=== PATIENT | female | born 1945 | race Caucasian/White ===

== ENCOUNTER 2017-06-11 12:49 | Emergency (ER) | payer MEDICARE ==
[2017-06-11 12:56] VITALS: BP 123/76
[2017-06-11] MEDS ORDERED: Ibuprofen TAB* 600 MG PO ONE (17:55)
--- NOTE | 2017-06-11 17:55 | ED ---
Throat Pain/Nasal Congestion - HPI Summary HPI Summary: Pt here w/ Rt eye redness pain which he woke with days ago. Denies change in vision, photosensitivity, discharge and no trauma to the area. B/L cataracts repaired over 10 years ago. No other eye issues to report. NOTE: pt w/ hypothyroidism - History of Current Complaint Chief Complaint: EDEyeProblem Time Seen by Provider: 06/11/17 16:49 Hx Obtained From: Patient - Allergies/Home Medications Allergies/Adverse Reactions: Allergies Allergy/AdvReac Type Severity Reaction Status Date / Time Iodine Allergy Hives Verified 06/11/17 12:54 Latex Allergy Rash Verified 06/11/17 12:54 Penicillins Allergy UNSURE Verified 06/11/17 12:54 PMH/Surg Hx/FS Hx/Imm Hx Previously Healthy: Yes Endocrine/Hematology History: Reports: Hx Thyroid Disease - hypothyroid Cardiovascular History: Denies: Other Cardiovascular Problems/Disorders Respiratory History: Denies: Other Respiratory Problems/Disorders GI History: Denies: Other GI Disorders History: Reports: Hx Kidney Stones - 1999 Musculoskeletal History: Denies: Hx Osteoporosis Sensory History: Reports: Hx Cataracts - DALI, Hx Contacts or Glasses - GLASSES Denies: Hx Hearing Aid Opthamlomology History: Reports: Hx Cataracts - DALI, Hx Contacts or Glasses - GLASSES Neurological History: Denies: Other Neuro Impairments/Disorders Psychiatric History: Reports: Hx Depression Denies: Hx Eating Disorder, Hx of Violent Episodes Against Others - Cancer History Hx Chemotherapy: No Hx Radiation Therapy: No - Surgical History Surgery Procedure, Year, and Place: ACL, DALI 1999, [facility] [place]. C SECTION X2 Hx Anesthesia Reactions: No Infectious Disease History: No Infectious Disease History: Denies: Traveled Outside the [place] in Last 30 Days - Social History Occupation: Retired Alcohol Use: Rare Alcohol Amount: 3 DRINKS PER WEEK Hx Substance Use: No Substance Use Type: Reports: None Hx Tobacco Use: No Smoking Status (MU): Never Smoked Tobacco Have You Smoked in the Last Year: No Review of Systems Constitutional: Negative Eyes: Other - see HPI ENT: Negative Cardiovascular: Negative Respiratory: Negative Gastrointestinal: Negative Genitourinary: Negative Musculoskeletal: Negative Skin: Negative Neurological: Negative Psychological: Normal All Other Systems Reviewed And Are Negative: Yes Physical Exam Triage Information Reviewed: Yes Vital Signs On Initial Exam: Initial Vitals Temp Pulse Resp BP Pulse Ox 97.6 F 104 16 123/76 96 06/11/17 12:54 06/11/17 12:54 06/11/17 12:54 06/11/17 12:54 06/11/17 12:54 Vital Signs Reviewed: Yes Appearance: Positive: Well-Appearing, Well-Nourished, Pain Distress - uncomfortable w/ Rt eye irritation Skin: Positive: Warm, Dry - no overlying skin changes about Rt eye/face/scalp Head/Face: Positive: Normal Head/Face Inspection Eyes: Positive: Conjunctiva Inflammed, Discharge - watery, Other: - sclera injected on Rt - no lesions, no sloughing, no abrasions, no Siedel's sign, no FB observed with and without fluouresceine; sligtly raised/inflammed (nodular) area long lateral area of sclera; cornea clear; limited fundoscopic exam w/o nydia hemorrhage ENT: Positive: Normal ENT inspection, Hearing grossly normal, Pharynx normal, TMs normal Respiratory/Lung Sounds: Positive: Breath Sounds Present Cardiovascular: Positive: Normal Abdomen Description: Positive: Nontender, Soft Musculoskeletal: Positive: Normal, Strength/ROM Intact Neurological: Positive: Normal, Sensory/Motor Intact, Alert, Oriented to Person Place, Time, CN Intact II-III Psychiatric: Positive: Normal Diagnostics - Vital Signs Vital Signs Temp Pulse Resp BP Pulse Ox 06/11/17 15:03 99.0 F 06/11/17 12:56 97.8 F 104 16 123/76 96 06/11/17 12:54 97.6 F 104 16 123/76 96 - Laboratory Lab Statement: Any lab studies that have been ordered have been reviewed, and results considered in the medical decision making process. EENT Course/Dx - Course Course Of Treatment: Spoke w/ ophthomologist about concern for episcleritis/ scleritis as pt's physical and clinical presentation along w/ h/o hypothyroidism (an autoimmune d/o for some) lead to high clinical suspicion for aforementioned dx. Discussed other possible ocular pathologies w/ ophthomologist however he agrees w/ current dx and agrees to see pt tomorrow for f/u. Reviewed danger s/sx of when to return. Pt agrees w/ plan. - Diagnoses Provider Diagnoses: Episcleritis of left eye Discharge - Discharge Plan Condition: Stable Disposition: HOME Patient Education Materials: Eye Pain (ED) Referrals: Montez Coombs MD [Medical Doctor] - Additional Instructions: It is suspected you have a scleritis or episcleritis. This will be treated with topical eye drops for lubrication which you may purchase over the counter as well as ibuprofen 600mg every 6 hours for pain and swelling (take with food). Follow-up with eye doctor tomorrow. Call at 8am. Contact information included here. *If you have change in vision, eye bulging from socket, swelling around eye, severe headache, fever, chills, neck stiffness, trouble breathing or swallowing , return to ED
== END 2017-06-11 18:11 | disposition home or self-care (01) ==
LOC: ED 12:49
DX: H15.102 Unspecified episcleritis, left eye (principal)
CPT/HCPCS: 99281; A9270-GY

== ENCOUNTER 2019-07-25 12:48 | Inpatient (IN) | payer MEDICARE ==
--- NOTE | 2019-07-25 13:41 | ED ---
Syncope/Near Syncope - HPI Summary HPI Summary: This patient is a 73 year old F presenting to [facility] accompanied by her female friend with a chief complaint of near-syncope since earlier today. Pt states she stood up from sitting on a bench and started to fall. She notes she felt queasy while sitting and queasier after she stood up. Pt called a friend over. Pt's daughter states pt was agitated and diaphoretic before EMS came. Her BP was 168/72. Pt does not remember calling 911. She says she feels better at this time. The patient rates the pain 0/10 in severity. Symptoms aggravated by nothing. Symptoms alleviated by nothing. Pt reports dizziness, lightheadedness, anxiety. Pt denies any fever, chills, erythema of eyes, sore throat, CP, PIMENTEL, SOB , cough, abdominal pain, back pain, N/V, dysuria, hematuria, myalgia, edema, rash, syncope. Pt occasionally drinks, but does not smoke. - History Of Current Complaint Chief Complaint: EDSyncope Time Seen by Provider: 07/25/19 13:09 Hx Obtained From: Patient, Family/Bilingual Operator - daughter, Other: - friend Onset/Duration: Sudden Onset, Lasting Hours - since earlier today, Resolved Timing: Hours - since earlier today Activity At Onset: Other - sitting on a bench Associated Head Trauma: No Aggravating Factor(s): Nothing Alleviating Factor(s): Nothing Associated Signs And Symptoms: Diaphoresis, Dizzy, Lightheadedness, Other - positive - anxiety, "queasiness," near-syncope. negative - any fever, chills, erythema of eyes, sore throat, CP, PIMENTEL, SOB, cough, abdominal pain, back pain, N/ V, dysuria, hematuria, myalgia, edema, rash, syncope. - Allergies/Home Medications Allergies/Adverse Reactions: Allergies Allergy/AdvReac Type Severity Reaction Status Date / Time iodine Allergy Hives Verified 06/20/19 14:35 latex Allergy Rash Verified 06/20/19 14:35 Penicillins Allergy Unknown Verified 06/20/19 14:35 Reaction Details Home Medications: Home Medications FLUoxetine CAP* [PROzac CAP*] 40 mg PO DAILY 07/25/19 [History Confirmed ] Levothyroxine TAB* [Synthroid TAB*] 88 mcg PO DAILY 07/25/19 [History Confirmed 07/25/19] Metoprolol Succinate XL TAB* [Toprol XL TAB*] 25 mg PO DAILY 07/25/19 [History Confirmed 07/25/19] PMH/Surg Hx/FS Hx/Imm Hx Previously Healthy: No Cardiovascular History: Denies: Other Cardiovascular Problems/Disorders Respiratory History: Denies: Other Respiratory Problems/Disorders GI History: Denies: Other GI Disorders History: Reports: Hx Kidney Stones - 1999 Musculoskeletal History: Denies: Hx Osteoporosis Sensory History: Reports: Hx Cataracts - DALI, Hx Contacts or Glasses - GLASSES Denies: Hx Hearing Aid Opthamlomology History: Reports: Hx Cataracts - DALI, Hx Contacts or Glasses - GLASSES Neurological History: Denies: Other Neuro Impairments/Disorders Psychiatric History: Reports: Hx Depression Denies: Hx Eating Disorder, Hx of Violent Episodes Against Others - Cancer History Hx Chemotherapy: No Hx Radiation Therapy: No - Surgical History Surgical History: Yes Surgery Procedure, Year, and Place: ACL, DALI 1999, [facility]. C SECTION X2 Hx Anesthesia Reactions: No Infectious Disease History: No Infectious Disease History: Denies: Traveled Outside the [place] in Last 30 Days - Family History Known Family History: Positive: None - Social History Alcohol Use: Occasionally Alcohol Amount: 3 DRINKS PER WEEK Substance Use Type: Reports: None Hx Tobacco Use: No Smoking Status (MU): Never Smoked Tobacco Do You Chew or Dip Tobacco: No Have You Chewed or Dipped Tobacco in the LAST YEAR: No Have You Smoked in the Last Year: No Review of Systems Constitutional: Other - positive - pt felt queasy, pt was agitated per daughter Positive: Skin Diaphoresis. Negative: Fever, Chills Negative: Erythema Negative: Sore Throat Negative: Chest Pain Negative: Shortness Of Breath, Cough Negative: Abdominal Pain, Vomiting, Nausea Negative: dysuria, hematuria Musculoskeletal: Other - negative - back pain Negative: Myalgia, Edema Negative: Rash Neurological: Other - positive - near-syncope, dizziness, lightheadedness Negative: Headache, Syncope Positive: Anxious All Other Systems Reviewed And Are Negative: Yes Physical Exam - Summary Physical Exam Summary: Constitutional: Well-developed, Well-nourished, Alert. (-) Distressed Skin: Warm, Dry HENT: Normocephalic; Atraumatic Eyes: Conjunctiva normal Neck: Musculoskeletal ROM normal neck. (-) JVD, (-) Stridor, (-) Tracheal deviation Cardio: Rhythm regular, rate normal, Heart sounds normal; Intact distal pulses; The pedal pulses are 2+ and symmetric. Radial pulses are 2+ and symmetric. (-) Murmur Pulmonary/Chest wall: Effort normal. (-) Respiratory distress, (-) Wheezes, (-) Rales Abd: Soft, (-) tenderness, (-) Distension, (-) Guarding, (-) Rebound Musculoskeletal: (-) Edema Lymph: (-) Cervical adenopathy Neuro: Alert, Oriented x3 Psych: Mood and affect Normal Triage Information Reviewed: Yes Vital Signs On Initial Exam: Initial Vitals Temp Pulse Resp BP Pulse Ox 98.0 F 78 15 159/105 97 07/25/19 12:52 07/25/19 12:52 07/25/19 12:52 07/25/19 12:52 07/25/19 12:52 Vital Signs Reviewed: Yes Diagnostics - Vital Signs Vital Signs Temp Pulse Resp BP Pulse Ox 07/25/19 12:52 98.0 F 78 15 159/105 97 - Laboratory Result Diagrams: 07/25/19 13:28 07/25/19 13:28 Lab Statement: Any lab studies that have been ordered have been reviewed, and results considered in the medical decision making process. - CT Brain CT Interpretation Completed By: Radiologist Summary of CT Findings: IMPRESSION: 1. No acute intracranial abnormality by CT (MRI is more sensitive for acute infarct). 2. Mild chronic small vessel scanner disease is likely. These findings were reviewed by Dr. Wilson. - EKG 1329 Cardiac Rate: NL - 80 EKG Rhythm: Sinus Rhythm Summary of EKG Findings: EKG at 1329 shows 80 BPM, sinus rhythm, no STEMI Re-Evaluation - Re-Evaluation First Eval Re-Evaluation Time: 15:55 Comment: Pt is upset, hyperventilating, has 108 systolic pressure, and did not take her medication today. Course/Dx Course Of Treatment: This patient is a 73 year old F presenting to [facility] accompanied by her female friend with a chief complaint of near-syncope since earlier today. Pt states she stood up from sitting on a bench and started to fall. She notes she felt queasy while sitting and queasier after she stood up. Pt called a friend over. Pt's daughter states pt was agitated and diaphoretic before EMS came. Her BP was 168/72. Pt does not remember calling 911. She says she feels better at this time. The patient rates the pain 0/10 in severity. Symptoms aggravated by nothing. Symptoms alleviated by nothing. Pt reports dizziness, lightheadedness, anxiety. Pt denies any fever, chills, erythema of eyes, sore throat, CP, PIMENTEL, SOB, cough, abdominal pain, back pain, N/ V, dysuria, hematuria, myalgia, edema, rash, syncope. Pt occasionally drinks, but does not smoke. Physical exam shows no remarkable findings. Lab results show MCH 35, absolute neuts 8.1, glucose 108, urine protein 1+ A, urine ketones trace A, urine blood 2+ A, Ur leukocyte esterase 2+ A, urine WBC 3+ A, urine RBC 3+ A, Ur squamous epith cells present A. EKG at 1329 shows 80 BPM, sinus rhythm, no STEMI. Brain CT IMPRESSION: 1. No acute intracranial abnormality by CT (MRI is more sensitive for acute infarct). 2. Mild chronic small vessel scanner disease is likely. During ED course, pt was given fluids, Lopressor IV , Rocephin. Dx are orthostasis hypertensive crisis, medication noncompliance, diaphoresis. At 1602, Dr. Gold accepts pt for admission. - Diagnoses Provider Diagnoses: Orthostasis, Hypertensive crisis, Noncompliance with medication regimen, Diaphoresis - Physician Notifications Discussed Care of Patient With: Dianna Gold Time Discussed With Above Provider: 16:02 Instructed by Provider To: Other - Dr. Gold accepts pt for admission. Discharge ED - Sign-Out/Discharge Documenting (check all that apply): Patient Departure - admit Patient Received Moderate/Deep Sedation with Procedure: No - Discharge Plan Condition: Stable Disposition: ADMITTED TO [facility] Referrals: Wesley Llanos MD [Primary Care Provider] - - Attestation Statements Document Initiated by Scribe: Yes Documenting Scribe: Barry Blanchard Provider For Whom Scribe is Documenting (Include Credential): Dr. Paul Wilson MD Scribe Attestation: Barry Grant, scribed for Dr. Paul Wilson MD on 07/25/19 at 1607. Status of Scribe Document: Ready
[2019-07-25 14:00] LABS: ABS Eosinophils 0.1 10^3/ul (0-0.6); ABS Lymphocytes 1.5 10^3/ul (1.0-4.8); ABS Monocytes 0.5 10^3/ul (0-0.8); ABS Neutrophils 8.1 10^3/ul (1.5-7.7); Eosinophil % 0.8 %; Hematocrit 39 % (35-47); Lymphocyte % 14.4 %; Mean Corpuscular HGB Conc 36 g/dL (31-36); Mean Corpuscular Hemoglobin 35 pg (27-31); Mean Corpuscular Volume 97 fL (80-97); Mean Platelet Volume 7.4 fL (7.4-10.4); Nucleated Red Blood Cells % 0.1; Platelet Count 368 10^3/uL (150-450); Red Blood Count 4.04 10^6 /uL (3.70-4.87); Red Cell Distribution Width 13 % (10-15); White Blood Count 10.3 10^3/uL (3.5-10.8)
[2019-07-25] MEDS ORDERED: NS 0.9% 1000 ML** 1,000 ML IV ONE (14:29)
[2019-07-25 14:32] LABS: Albumin 4.1 g/dL (3.2-5.2); Albumin/Globulin Ratio 1.5 (1-3); BUN/Creatinine Ratio 17.9 (8-20); Calcium 9.9 mg/dL (8.6-10.3); EGFR Non-African American 57.8 (>60); Globulin 2.7 g/dL (2-4); Magnesium 1.9 mg/dL (1.9-2.7); Potassium 3.6 mmol/L (3.5-5.0); Total Bilirubin 0.7 mg/dL (0.2-1.0); Total Protein 6.8 g/dL (6.4-8.9)
[2019-07-25 14:43] LABS: Urine Appearance Cloudy; Urine Bacteria Absent (Absent); Urine Bilirubin Negative (Negative); Urine Blood 2+ (Negative); Urine Color Yellow; Urine Glucose Negative (Negative); Urine Ketones Trace (Negative); Urine Nitrite Negative (Negative); Urine Protein 1+(30 mg/dL) (Negative); Urine Red Blood Cell 3+(>10/hpf) (Absent); Urine Specific Gravity 1.016 (1.010-1.030); Urine Squamous Epithelial Cell Present (Absent); Urine Urobilinogen Negative (Negative); Urine White Blood Cell 3+(>20/hpf) (Absent)
[2019-07-25 15:04] LABS: TSH (Thyroid Stimulating Horm) 2.49 mcIU/mL (0.34-5.60)
[2019-07-25] MEDS ORDERED: cefTRIAXone(*) 1 GM in NS 0.9% 50 ML* 50 ML IVPB ONE (15:52)
[2019-07-25] MEDS ORDERED: Metoprolol Tartrate IV* 1 MG/ML 5 ML VIAL IV ONE (15:54)
[2019-07-25] MEDS ORDERED: Lisinopril TAB* 5 MG PO SCH (18:00)
--- NOTE | 2019-07-25 19:27 | HP ---
CC: Dr. Wesley Llanos, [facility] * ADMISSION HISTORY AND PHYSICAL: DATE OF ADMISSION: 07/25/19 CHIEF COMPLAINT: Near syncope. HISTORY OF PRESENT ILLNESS: Ms. Lawson is a 73-year-old woman with history of hypertension who got up late this morning around noon and felt immediately dizzy when she tried to stand up from her bed. She sat down and called a friend who lived nearby and stating that she did not feel right. The patient's friend came over to her house and found her agitated and upset. The patient at this time does not recall making a telephone call to her friend. The patient felt this was a panic attack, but her friend thought that she was dizzy and diaphoretic and was concerned about heart issues. This led her to call 911. Her friend's name is Jaylene. On further questioning, the patient has no clear memory of what happened between 6 in the morning and noon today. She states she normally gets up early and does not understand how she could have been in bed until noon. However, there is no evidence in the downstairs of the house that she was up and around and she is quite sure she was in her bedroom at least until noon. It is possible that she simply slept for 6 hours. The patient denies any headache, chest pain, shortness of breath. Last hospitalization here was in 2014 where she was admitted to the mental health unit for depression. The patient's friend, Jaylene, reports a history of alcohol abuse. Jaylene states that she was involved in an "intervention" with her about 4 or 5 years ago and she is not sure how much the patient drinks at this time, but she was drinking daily and heavily before that. PAST MEDICAL HISTORY: Includes depression, hypothyroidism, and hypertension. PAST SURGICAL HISTORY: Bilateral knee replacement. MEDICATIONS ON ADMISSION: 1. Fluoxetine 40 mg p.o. q.a.m. 2. Levothyroxine 88 mcg p.o. q.a.m. 3. Toprol-XL 25 mg p.o. q. day. None of the medications are new. ALLERGIES: PENICILLIN. FAMILY HISTORY: Notable for a mother with depression and mental hospital admissions for unclear reasons. Father also had mental health problems, was never admitted to the hospital. Brother has had depressive episodes. SOCIAL HISTORY: She is . She has 2 children. Her daughter, Linda, lives in [place]. She has a son in the [facility]. She never smoked. She states she drinks wine, maybe 2 drinks per week. No recreational drugs. 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 REVIEW OF SYSTEMS: The patient denies any fever, weight loss, or anorexia. The patient denies any chest pain or palpitations. The patient denies any cough or shortness of breath. The friend and daughter have discussed with the patient in the last few months and they both are reporting memory problems that have been present for some months, apparently not diagnosed at primary care. The patient denies any memory problems herself, but admits to anxiety. The remainder of 14- point review of systems is negative other than mentioned in the HPI. PHYSICAL EXAMINATION GENERAL: She is a well-appearing older woman, in no acute distress. VITAL SIGNS: Temperature 36.7; pulse 88; respirations 26; blood pressure lying was 192/110, sitting was 156/112, and standing was 131/86; oxygen saturation 98% . HEENT: Head is normocephalic, atraumatic. Sclerae anicteric. Pupils are equal , round, and reactive to light and accommodation. Oropharynx is moist, no lesions. NECK: No JVD, no carotid bruits, no thyromegaly. LUNGS: Clear to auscultation and percussion bilaterally. HEART: Regular rate and rhythm. No murmurs or gallops. ABDOMEN: Soft, nontender. Positive bowel sounds. No hepatosplenomegaly. EXTREMITIES: No peripheral edema. Dorsalis pedis pulse are 2+ bilaterally. NEUROLOGIC: Cranial nerves II through XII are intact. Motor strength is 5/5 throughout. Deep tendon reflexes are 2+ and symmetric. She is alert. She is oriented to place. She thought the date was 07/24/19 which was off by 1 day, but she was very slow to come up with the year. She does not remember the names of her medications except for one. She also contradicted herself when talking about allergies; initially, she said that she has 3 allergies, but later she said she had only one allergy and took a long time to come up with PENICILLIN as her allergy. DIAGNOSTIC STUDIES/LAB DATA: Sodium 138, potassium 3.6, chloride 106, bicarb 23, BUN 17, creatinine 0.95, glucose 108, calcium 9.9, magnesium 1.9, lactic acid 1.3. TSH 2.49. White count 10.3, hemoglobin 14, hematocrit 39%, platelets are 386. Urinalysis shows 2+ blood, 2+ leukocyte esterase, 3+ white cells. Urine culture is pending. The EKG shows normal sinus rhythm, normal axis, no ST or T-wave changes to suggest ischemia. Head CT shows some chronic microvascular changes and aging, but no acute infarct or bleed. Chest x-ray is negative for infiltrates or effusions. ASSESSMENT AND PLAN: A 73-year-old woman presenting with near syncope and orthostasis along with a recent history of progressive memory loss. The differential wound include dehydration or hypovolemia from a GI hemorrhage, which at this point is not apparent on exam. She could have autonomic disease such as Parkinson's or Shy-Drager and she could have adrenal issues with low cortisol causing orthostasis. Other causes of orthostasis would include medication side effects, but nothing new has been added. The patient will be admitted to telemetry, and we will hold her beta-samia given that this could contribute to orthostasis. She will be monitored for arrhythmia as well on telemetry. I will check an a.m. cortisol to begin assessing her adrenal glands. For hypertension, I will start her on lisinopril. I think choosing MARC inhibitor which would not have so much chance of causing orthostasis seems reasonable. I would like to avoid beta-blockers and diuretics. The patient will have a psychiatry evaluation tomorrow. I suspect that part of this presentation was a panic attack, but there may also be an element of early Alzheimer's. Differential with her memory loss this morning would include seizure with postictal confusion, but the patient's friend feels that perhaps she is at her baseline now and has been progressively confused over several months. The patient has history of alcohol abuse and will be observed for signs and symptoms of alcohol withdrawal, but at this time we are not initiating the [facility] protocol. For possible hypovolemia, she will be continued on her normal saline with a bit of potassium. Her labs and physical exam are not consistent with hypovolemia. Code status is full. DVT prophylaxis will be with sequential compression devices. [id number]/[facility] #: [id number] [facility]
[2019-07-25] MEDS: NS 0.9% w/ 20 Meq KCL 1000 ML* 1,000 ML IV SCH (21:19)
[2019-07-25] MEDS: Acetaminophen TAB* 325 MG PO PRN (22:26)
[2019-07-26] MEDS: Levothyroxine TAB* 88 MCG TAB PO SCH (05:25)
[2019-07-26 06:17] LABS: ABS Eosinophils 0.1 10^3/ul (0-0.6); ABS Monocytes 0.5 10^3/ul (0-0.8); ABS Neutrophils 5.8 10^3/ul (1.5-7.7); Eosinophil % 1.6 %; Hematocrit 38 % (35-47); Hemoglobin 13.3 g/dL (12.0-16.0); Lymphocyte % 23.9 %; Mean Corpuscular HGB Conc 35 g/dL (31-36); Mean Corpuscular Hemoglobin 34 pg (27-31); Mean Corpuscular Volume 98 fL (80-97); Mean Platelet Volume 7.3 fL (7.4-10.4); Platelet Count 324 10^3/uL (150-450); Red Blood Count 3.89 10^6 /uL (3.70-4.87); Red Cell Distribution Width 13 % (10-15); White Blood Count 8.6 10^3/uL (3.5-10.8)
[2019-07-26 06:27] LABS: BUN/Creatinine Ratio 14.7 (8-20); Calcium 9.3 mg/dL (8.6-10.3); EGFR African American 102.9 (>60); EGFR Non-African American 85.1 (>60); Potassium 3.9 mmol/L (3.5-5.0)
[2019-07-26] MEDS ORDERED: LORazepam TAB(*) 1 MG PO ONE (07:31)
[2019-07-26] MEDS: Lisinopril TAB* 10 MG PO SCH (08:51)
[2019-07-26] MEDS ORDERED: FLUoxetine CAP* 20 MG PO SCH (09:00)
[2019-07-26] MEDS: NS 0.9% w/ 20 Meq KCL 1000 ML* 1,000 ML IV SCH ×2 (10:05→20:38)
--- NOTE | 2019-07-26 10:23 | CONSULT ---
Consult Consult: Reason for consult depression and memory issues. CC " I had a panic attack" The patient was brought to [facility] after a recent fall and panic attack. She mentions that she does not remember anything from 6am to 11am. Her friend was at her bedside and mentions that she has been confused forgetful and has been acting different for the last year. She said that her friend came to her house and found her. According to the patient she has been anxious about her daughter coming home. Her friend expressed that her children live on the [facility] and plan to move her near them because she has been unable to care for herself. Patient doesnt know what year she was and what medications she is on. Denied access to firearms or stockpiles of medications. She reported not changes in sleep or appetite. The patient denied suicidal and or homicidal ideation intent or plan. The patient denied auditory and/ or visual hallucinations. PAST PSYCHIATRIC HISTORY: Prior Diagnosis : Panic Disorder, History of past Psychiatric Hospitalizations: 1 prior psychiatric admission 09/2015. History of past suicide/homicide attempts : Denied past suicide attempts. Denied past homicidal incidents. Outpatient follow-up: Family and Children's Medications: Past trials of medications include prozac 40mg daily for the last 5 years Guardianship: None. FAMILY HISTORY: - Suicide: Per patient her mother made multiple suicide attempts. - Mental illness: Mother Dx with depression. - Substance abuse: Denied substance abuse among family members. SUBSTANCE ABUSE HISTORY: Denied using alcohol, tobacco, heroin cocaine or other illicit substances. Denied abusing pills for recreational use. Denied past Substance abuse treatment. SOCIAL HISTORY: Denied a history of sexual and or physical abuse Born in [place] raised by both parents. 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 - Allergies: Denied drug or other allergies. Physical Exam: Please see ED note Mental Status Exam on Admission APPEARANCE : 73 year old who appears stated age. Patient is not malodourous, and appears to have fair hygiene and grooming. BEHAVIOR: Cooperative , calm EYE CONTACT: Fair PSYCHOMOTOR ACTIVITY: No psychomotor agitation or retardation. MOVEMENTS: No abnormal movements observed. SPEECH : Normal rate, rhythm, volume and tone. MOOD : "fine " AFFECT : Type is anxious THOUGHT PROCESS: Formulated and organized in a logical, linear goal directed manner. No flight of ideas, neologism (made up words) , perseveration , tangential , loose associations , or circumstantiality. THOUGHT CONTENT: no delusions, obsessions, phobias or preoccupations. PERCEPTION: No current auditory or visual hallucinations. Doesnt appear to be responding to internal cues. No evidence of depersonalization , de-realization, or illusions SUICIDALITY Denied suicidal ideation, intent or plan. HOMICIDALITY Denied homicidal ideation, intent or plan. Insight/judgment: Poor insight and judgment ORIENTATION: Oriented to self, location, and not year. Diagnosis: Unspecified neuro-cognitive disorder, panic disorder, history of major depressive disorder. Assessment: 73 year old with history of depression and anxiety came to the hospital after having a panic attack and showing signs of cognitive decline. Plan # Patient doesnt require psychiatric inpatient admission # Increase prozac 50mg daily. # Medical team to rule out medical etiology # It would be beneficial to have neurology input to narrow the neurological etiology # Follow results for MRI brain w/wo # Can use Klonopin 1mg PRN in the event of having a panic attack. Use sparingly given cognitive disorder and risk of falls and delirium. # Obtain collateral information from her children # Will perform MOCA #Psychiatry will continue to follow her #Patient lacks capacity to make own medical decision. Her children are in the process of being her health care proxy. Sodium 137 mmol/L (135-145) 07/26/19 05:34 Potassium 3.9 mmol/L (3.5-5.0) 07/26/19 05:34 BUN 10 mg/dL (6-24) 07/26/19 05:34 Creatinine 0.68 mg/dL (0.51-0.95) 07/26/19 05:34 Calcium 9.3 mg/dL (8.6-10.3) 07/26/19 05:34 Magnesium 1.9 mg/dL (1.9-2.7) 07/25/19 13:28 AST 16 U/L (13-39) 07/25/19 13:28 ALT 18 U/L (7-52) 07/25/19 13:28
[2019-07-26 10:28] LABS: Folate 5.25 ng/mL (>3.99)
--- NOTE | 2019-07-26 11:44 | ECHO ---
*[facility]* [place] [address] Fax #: [phone] Transthoracic Echocardiogram Patient: Grady Lawson : 1945 Study Date: 07/26/2019 Age: 73 Gender: F HR: 48 bpm Height: 60 in /152.4 cm BSA: 1.62 m^2 Weight: 143.7 lb /65.3 kg BMI: 28.1 kg/m^2 *County Auditor: * Sravanthi Alberts RD *Referring Physician: * Arian Dave *Reading Physician: * Madhav Stack MD Indications: Cardiomyopathy. History: Risk factors: Hypertension. Hypothyroidism. Conclusions Summary: - Left ventricle: There is mild concentric hypertrophy. Systolic function is normal. The estimated ejection fraction is 55-60%. Doppler parameters are consistent with abnormal left ventricular relaxation (grade 1 diastolic dysfunction). - Mitral valve: There is mild regurgitation. - Tricuspid valve: There is trace to mild regurgitation. Study data: Transthoracic echocardiogram. Procedure: Transthoracic echocardiography was performed. Image quality was fair. Complete 2D, spectral Doppler, and color flow Doppler. Location: Bedside. Patient status: Inpatient. Patient room number: 432. No prior study is available for comparison. Rhythm: Normal sinus rhythm. Findings Left ventricle: The cavity size is normal. There is mild concentric hypertrophy. Systolic function is normal. The estimated ejection fraction is 55-60%. Wall motion is normal; there are no regional wall motion abnormalities. Doppler parameters are consistent with abnormal left ventricular relaxation (grade 1 diastolic dysfunction). Right ventricle: The cavity size is at the upper limits of normal. The moderator band is in a normal position. Systolic function is normal. Left atrium: The atrium is at the upper limits of normal in size. Right atrium: The atrium is normal in size. Mitral valve: The leaflets are mildly thickened. There is no evidence of stenosis. There is mild regurgitation. Aortic valve: The valve is trileaflet. The leaflets are mildly thickened. There is no evidence of stenosis. There is no significant regurgitation. Tricuspid valve: The leaflets are normal thickness. There is no evidence of stenosis. There is trace to mild regurgitation. Pulmonic valve: Not well visualized. There is no evidence of stenosis. There is trace regurgitation. Aorta: Ascending aorta: The ascending aorta is appears normal. The aortic root appears normal. The aortic arch appears normal. Pericardium: There is no significant pericardial effusion. Pulmonary arteries: The main pulmonary artery is normal-sized. Systolic pressure is within the normal range. Systemic veins: Inferior vena cava: The vessel is normal in size. There is (>= 50%) respiratory change in the IVC dimension. Measurements Left ventricle Value Ref Aortic valve Value Ref MOON, LAX 4.5 cm 3.8 - 5.2 Jean Pierre diam, ED 1.9 cm ----- ESD, LAX 3.3 cm 2.2 - 3.5 Peak v, S 1.19 m/sec ----- FS, LAX 28 % 45 VTI, S 18.0 cm ----- PW, ED, LAX (H) 1.1 cm 0.6 - 0.9 Mean grad, S 2.0 mm Hg ----- FS 28 % Peak grad, S 6.0 mm Hg ----- PW, ED (H) 1.1 cm 0.6 - 0.9 LVOT/AV, VTI ratio 1.17 ----- E', lat jean pierre, TDI (L) 4.1 cm/sec >=10.0 E/e', lat jean pierre, 12 Mitral valve Value Ref TDI Peak E 0.5 m/sec ----- E', med jean pierre, TDI (L) 4.5 cm/sec >=7.0 Peak A 0.89 m/sec --- -- E/e', med jean pierre, 11 Decel time 218 ms ----- TDI Peak E/A ratio 0.6 ----- E', avg, TDI 4.3 cm/sec E/e', avg, TDI 12 <=14 Pulmonic valve Value Ref Peak v, S 0.92 m/sec ----- LVOT Value Ref Peak grad, S 3.0 mm Hg ----- Peak jaleel, S 1 m/sec VTI, S 21.0 cm Tricuspid valve Value Ref Mean grad, S 2 mm Hg TR peak v 2.3 m/sec <=2.8 Peak RV-RA grad, S 21 mm Hg ----- Ventricular septum Value Ref IVS, ED (H) 1.1 cm 0.6 - 0.9 Aortic root Value Ref Root diam 3.3 cm <3.9 Right ventricle Value Ref MOON, LAX 3.3 cm Ascending aorta Value Ref MOON minor ax, A4C (H) 4.3 cm 1.9 - 3.5 AAo AP diam, S 3.1 cm ----- mid Pressure, S 24 mm Hg Aortic arch Value Ref Arch diam 2.2 cm ----- Left atrium Value Ref AP dim, ES (H) 3.90 cm 2.70 - Decending aorta Value Ref 3.80 Nela peak jaleel 0.65 m/sec ----- ML dim, A4C 4.0 cm SI dim, A4C 5.0 cm Pulmonary artery Value Ref Vol/bsa, ES, 1-p 25 ml/m^2 11 - 40 Pressure, S 21.0 mm Hg ----- A4C Vol/bsa, ES, A/L 28 ml/m^2 16 - 34 Inferior vena cava Value Ref Diam 1.3 cm ----- Right atrium Value Ref SI dim, ES 4.6 cm 3.4 - 5.3 ML dim, ES, A4C 3.5 cm 2.6 - 4.4 SI dim, ES, A4C 4.6 cm 3.4 - 5.3 Estimated RAP 3 mm Hg Legend: (L) and (H) george values outside specified reference range. Prepared and electronically signed by Madhav Stack MD 07/26/2019 11:43
[2019-07-26] MEDS ORDERED: Gadoteridol* (CONTRAST) 279.3 MG/ML 10 ML IV ONE (14:10)
[2019-07-26] MEDS ORDERED: clonazePAM TAB(*) 1 MG PO PRN (16:56)
--- NOTE | 2019-07-26 17:07 | PN ---
Subjective Date of Service: 07/26/19 Interval History: Patient was holding a basin this morning when I saw her. She was helpless looking, hyperventilating, crying to me "I don't want to be left alone".She told me she was left alone at home panicking to . And she begged for not discharging her. She felt very depressed as she was alone at home. She cannot recall certain words when she was talking to me. Her symptoms quickly resolved after one dose of ativan. Objective Active Medications: Acetaminophen (Tylenol Tab*) 650 mg PO Q4H PRN PRN Reason: PAIN - MILD Last Admin: 07/25/19 22:26 Dose: 650 mg Clonazepam (Klonopin Tab(*)) 1 mg PO Q8H PRN PRN Reason: Panic attack Cyanocobalamin (Vitamin B12 Tab*) 1,000 mcg PO DAILY [facility] Fluoxetine HCl (Prozac Cap*) 50 mg PO DAILY [facility] Potassium Chloride/Sodium Chloride (Ns 0.9% W/ 20 Meq Kcl 1000 Ml*) 1,000 mls @ 125 mls/hr IV PER RATE [facility] Last Admin: 07/26/19 10:05 Dose: 125 mls/hr Levothyroxine Sodium (Synthroid Tab*) 88 mcg PO DAILY@0600 [facility] Last Admin: 07/26/19 05:25 Dose: 88 mcg Lisinopril (Prinivil Tab*) 10 mg PO DAILY [facility] Last Admin: 07/26/19 08:51 Dose: 10 mg Vital Signs - 8 hr 07/26/19 07/26/19 07/26/19 10:00 11:15 13:15 Temperature 98 F Pulse Rate 80 Respiratory 16 20 Rate Blood Pressure 121/77 (mmHg) O2 Sat by Pulse 97 Oximetry 07/26/19 07/26/19 07/26/19 13:16 13:17 15:15 Temperature 98 F Pulse Rate 91 95 70 Respiratory 16 Rate Blood Pressure 132/87 126/86 142/58 (mmHg) O2 Sat by Pulse 99 Oximetry Oxygen Devices in Use Now: None Exam: General - NAD, sitting up in bed, well groomed and in nightgown HEENT- no abnormality Lymph Nodes - No lymphadenopathy Cardiovascular - RRR no m/r/g, no JVD, no carotid bruits Lungs - Clear to auscltation, no use of acessory muscles, no crackles or wheezes. Skin - No rashes, skin warm and dry, no erythematous areas Abdomen - Normal bowel sounds, abdomen soft and nontender Extremeties - No edema, cyanosis or clubbing Musculo Skeletal - 5/5 strength, normal range of motion, no swollen or erythematousjoints. Neurological Alert and oriented x 3, CN 2-12 grossly intact. Psychiatry-in panic attack, anxious looking, depressed also Result Diagrams: 07/26/19 05:34 07/26/19 05:34 Assess/Plan/Problems-Billing Assessment: 73 y/o female with history of hypertension , presented with near-syncope and orthostasis after a recent history of progressive memory loss. Workup for organic causes of near-syncope and orthostasis is unremarkable so far, but patient had this recurrent episode which was clearly panic attack. - Patient Problems (1) Panic attack Current Visit: Yes Status: Acute Code(s): F41.0 - PANIC DISORDER [EPISODIC PAROXYSMAL ANXIETY] SNOMED Code(s): 862772847 Comment: Psychiatry consult today Lorazepam prn (2) Orthostasis Current Visit: Yes Status: Acute Code(s): I95.1 - ORTHOSTATIC HYPOTENSION SNOMED Code(s): 47019178 Comment: Orthostatic changes noted in ED likely hypovolemic in nature IV NS given (3) Hypertension Current Visit: Yes Status: Acute Code(s): I10 - ESSENTIAL (PRIMARY) HYPERTENSION SNOMED Code(s): 73665050 Comment: start lisinopril (4) Anxiety Current Visit: No Status: Acute Priority: High Onset Date: 09/20/15 Code (s): F41.9 - ANXIETY DISORDER, UNSPECIFIED SNOMED Code(s): 47380566 Comment: continue fluoxetine for now (5) Major depression Current Visit: No Status: Suspected Priority: High Onset Date: 09/20/15 Code(s): F32.9 - MAJOR DEPRESSIVE DISORDER, SINGLE EPISODE, UNSPECIFIED SNOMED Code(s): 314230402 Comment: consider increase SSRI dose Status and Disposition: Inpatient medicine, patient is unsafe to go home and stay alone with frequent panic attack episode, placement after discharge is difficult Attestation Documenting Resident: Janine Callahan Supervising Physician: Arian Dave Attestation: This service has been performed in part by a resident under the direction of a teaching physician.I, Arian Dave, performed the service, or was physically present during the critical, or gordon portions of the service, furnished by the resident. I participated in the management of the patient.
[2019-07-27] MEDS: Levothyroxine TAB* 88 MCG TAB PO SCH (05:06)
[2019-07-27] MEDS: NS 0.9% w/ 20 Meq KCL 1000 ML* 1,000 ML IV SCH (05:16)
[2019-07-27] MEDS: FLUoxetine CAP* 10 MG PO SCH (08:05)
[2019-07-27] MEDS: Cyanocobalamin TAB* 500 MCG PO SCH (08:05)
[2019-07-27] MEDS: Lisinopril TAB* 10 MG PO SCH (08:05)
[2019-07-27] MEDS ORDERED: Cyanocobalamin INJ * 1,000 MCG/ML VIAL 1 ML VIAL IM SCH (09:00)
--- NOTE | 2019-07-27 13:16 | PN ---
Subjective Date of Service: 07/27/19 Interval History: Patient reports vomiting this AM. Now she is eating lunch w/o nausea. She reports depression came on her suddenly around noon, and she no longer wants to live. Friend Jaylene is visiting. Daughter Alba is traveling back to [place] today from [place], her correct number is [phone] Son Vincenzo is at [phone]. Family History: Unchanged from Admission Social History: Unchanged from Admission Past Medical History: Unchanged from Admission Objective Active Medications: Acetaminophen (Tylenol Tab*) 650 mg PO Q4H PRN PRN Reason: PAIN - MILD Last Admin: 07/25/19 22:26 Dose: 650 mg Clonazepam (Klonopin Tab(*)) 1 mg PO Q8H PRN PRN Reason: Panic attack Cyanocobalamin (Vitamin B12 Tab*) 1,000 mcg PO DAILY [facility] Last Admin: 07/27/19 08:05 Dose: 1,000 mcg Cyanocobalamin (Vitamin B12 Inj *) 1,000 mcg IM Q7D [facility] Last Admin: 07/27/19 08:58 Dose: 1,000 mcg Fluoxetine HCl (Prozac Cap*) 50 mg PO DAILY [facility] Last Admin: 07/27/19 08:05 Dose: 50 mg Potassium Chloride/Sodium Chloride (Ns 0.9% W/ 20 Meq Kcl 1000 Ml*) 1,000 mls @ 125 mls/hr IV PER RATE [facility] Last Admin: 07/27/19 05:16 Dose: 125 mls/hr Levothyroxine Sodium (Synthroid Tab*) 88 mcg PO DAILY@0600 [facility] Last Admin: 07/27/19 05:06 Dose: 88 mcg Lisinopril (Prinivil Tab*) 10 mg PO DAILY [facility] Last Admin: 07/27/19 08:05 Dose: 10 mg Vital Signs - 8 hr 07/27/19 07/27/19 07:15 11:15 Temperature 36.6 C 36.6 C Pulse Rate 67 80 Respiratory 19 16 Rate Blood Pressure 146/87 168/98 (mmHg) O2 Sat by Pulse 100 98 Oximetry Oxygen Devices in Use Now: None Appearance: alert, no distress Eyes: No Scleral Icterus Ears/Nose/Mouth/Throat: Clear Oropharnyx Neck: NL Appearance and Movements; NL JVP Respiratory: Symmetrical Chest Expansion and Respiratory Effort Cardiovascular: NL Sounds; No Murmurs; No JVD, RRR Abdominal: NL Sounds; No Tenderness; No Distention Lymphatic: No Cervical Adenopathy Neurological: Alert and Oriented x 3 Lines/Tubes/Other Access: Clean, Dry and Intact Peripheral IV Nutrition: Taking PO's Result Diagrams: 07/26/19 05:34 07/26/19 05:34 Additional Lab and Data: Laboratory Tests 07/26/19 05:34 Vitamin B12 141 L Folate 5.25 Cortisol 17.33 Microbiology and Other Data: Microbiology 07/25/19 14:23 Urine Culture - Final Urine Diagnostic Imaging: MRI brain; normal for age Assess/Plan/Problems-Billing Assessment: 73 y/o female with history of hypertension , presented with near-syncope and orthostasis after a recent history of progressive memory loss. Workup for organic causes of near-syncope and orthostasis is unremarkable so far, but patient had this recurrent episode which was clearly panic attack. - Patient Problems (1) Major depression Current Visit: Yes Status: Suspected Priority: High Onset Date: 09/20/15 Code(s): F32.9 - MAJOR DEPRESSIVE DISORDER, SINGLE EPISODE, UNSPECIFIED SNOMED Code(s): 962544104 Comment: -Psychiatry consult appreciated -Increased SSRI dose yesterday -Contacted Dr. Loomis to see patient again re suicidality -1:1 ordered (2) Hypertension Current Visit: Yes Status: Acute Priority: Medium Code(s): I10 - ESSENTIAL (PRIMARY) HYPERTENSION SNOMED Code(s): 85093297 Comment: - tolerating lisinopril - BP not at goal, will increase (3) Vitamin B12 deficiency Current Visit: Yes Status: Acute Priority: Medium Code(s): E53.8 - DEFICIENCY OF OTHER SPECIFIED B GROUP VITAMINS SNOMED Code(s): 157704381 Comment: -low B12 could contribute to cognitive issues and depression -Starting IM B12 today -Can continue oral replacement (4) DVT prophylaxis Current Visit: Yes Status: Acute Priority: Low Code(s): Z29.9 - ENCOUNTER FOR PROPHYLACTIC MEASURES, UNSPECIFIED SNOMED Code(s): 186552058 Comment: -ambulatory Status and Disposition: Inpatient medicine, patient is unsafe to go home due to psychiatric issues, placement after discharge with family planned Counseling and/or Coordination of Care Minutes: Left messages with son and daughter to call back.
--- NOTE | 2019-07-27 15:53 | CONS ---
NEUROLOGY CONSULTATION: DATE OF CONSULT: 07/27/19 LOCATION: She is an inpatient in room 432. REFERRING PROVIDER: Dr. Dave. PRIMARY CARE PROVIDER: Dr. Llanos. CHIEF COMPLAINT: Memory problems. HISTORY OF PRESENT ILLNESS: Grady Lawson is a 73-year-old right-handed woman who was admitted on because of confusion. She apparently called some friends who noted she was very confused and b rought her to the emergency room. In the emergency room, she complained of feeling very dizzy and li ghtheaded, and she was extremely agitated and diaphoretic. Her blood pressure was elevated at 168/72 , and apparently, she might have called 911 as opposed to her friend bringing her in. The patient did not recall the details of how she got to the emergency room. In any case, it was felt that she was having a panic attack. It was also noted that her memory was extremely poor and a history was elicit ed of progressive memory impairment for at least a year or more. She says her daughter is always say ing her memory is very poor. She says she does sometimes get lost when she is driving, but not to th e point where she has needed to call for help. She says it has been occurring more and more. She sa ys she has always been bad about paying her bills because she forgets. She does not think that that is a new problem. She is very poor at remembering tasks or chores, but she says she lives alone and is financially independent and so really does not have much that she has to do. She was evaluated by Psychiatry and felt not to have insight and judgment into her deficits and that she therefore lacked capacity to make judgments regarding her care. In speaking with Dr. Dave, her daughter is returning from a trip and should be in the area this weekend or soon thereafter. Grady says that she has be en [place] and where she has f amily including a son. She denies any significant head trauma. There is no history of migraines. She says her mother had s evere depression and was in and out of mental hospitals. It is not clear from her description whethe r or not her mother had dementia or not. Grady says she does not drink alcohol very much at all, ma ybe once or twice a week, but notes from 5 years ago indicates that she may have been a heavy drinker back then. As part of her evaluation here in the hospital, she had an MRI scan of the brain, which I reviewed an d looks fairly normal other than some mild white matter hyperintensities consistent with mild chronic small vessel ischemic changes. Also as part of her evaluation, she had a vitamin B12 level which wa s low at 141. She says she is not a vegetarian. She does not take antacids at home on a regular bas is. PAST MEDICAL HISTORY: Notable for hypertension, hypothyroidism, depression. She has had bilateral t otal knee replacements. She has been hospitalized for depression and anxiety before. MEDICATIONS: Medications at home consist of, 1. Fluoxetine 50 mg p.o. daily. 2. Levothyroxine 88 mcg p.o. daily. 3. Toprol XL 25 mg p.o. daily. Medications here in the hospital also include, 1. Clonazepam 1 mg p.o. every 8 hours as needed for panic attack. 2. Vitamin B12 which was given by injection at 1000 mcg earlier today and was started yesterday at 1 000 mcg orally. 3. Her fluoxetine has been increased to 50 mg per day. 4. She is now on lisinopril 20 mg p.o. daily. 5. Metoprolol was stopped. FAMILY HISTORY: Notable for mother suffering of pretty severe depression and possibly cognitive decl ine. She has 2 siblings and to the best of her knowledge, they do not have any cognitive issues. SOCIAL HISTORY: She lives alone. She is . She has a daughter in [place] and a son who martín es at [place]. She is a nonsmoker. She drinks alcohol a couple of days a week. REVIEW OF SYSTEMS: Negative for headaches, seizures, or strokes. There is no history of transient v isual loss, hemiparesis, or hemisensory deficits. She does admit to word finding problems, but says that that is persistent and progressively worsening problem for at least a year or more. There is no history of diabetes or dyslipidemia. There is no history of heart disease. She walks for exercise. There is no history of pulmonary, GI, or disorders. She has not had any recent infections or sarah ght loss. The rest of the 14-point review of systems is unremarkable. PHYSICAL EXAM: She is well nourished and well hydrated. Temperature 97.9 orally, blood pressure 168 /98, heart rate 80 and regular, respiratory rate is 16, and oxygen saturation is 98% on room air. He art is in a regular rhythm without murmurs. Neck is supple. I do not hear any cervical bruits. Lena gs are clear bilaterally. Neurological Exam: Pupils react equally from 3 down to 2 mm. There is no ptosis. Eye movements are normal. Visual ellsworth are full to confrontation. Funduscopic exam revealed some arterial or tortuos ity and AV nicking, but no hemorrhages. Optic discs are sharp. Facial musculature and facial sensati on to light touch are intact and symmetric. Palate and tongue appear normal and there is no dysarthr ia. Hearing is intact bilaterally. Neck muscle bulk and strength are normal. Motor exam reveals a little paratonia, but no rigidity or spasticity. She has normal strength proxim ally and distally in upper and lower extremities. She has diminished vibratory sense at the right great toes and to a lesser extent at the left great t oes. Proprioceptive responses are slow and sluggish in the right great toes, a little slow but impro hema in the left. Light touch is intact in all distal limbs. Pin discrimination is intact in all miles bs symmetrically. Reflexes were intact at biceps, brachioradialis, and knees. They are absent at the ankles. Plantar responses are flexor bilaterally. Gait is stable and independent. Romberg sign is absent. There is no rest or sustention tremor. Woxkeb-ft-xije maneuver is normal bilaterally. Finger taps a re normal in the hands bilaterally. Mental status testing: She scores 25/30 on the mini-mental status exam. She misses 2/3 on recall an d 3/10 on orientation. DIAGNOSTIC STUDIES/LAB DATA: The MRI scan as mentioned above. I personally reviewed the images and agree with the interpretation. Her chemistry profile is unremarkable other than a glucose of 108 whe n she was admitted. Liver enzymes are normal. TSH is normal. Folate level is normal at 5.25. Sivan min B12 level was low at 141. Urinalysis is notable for 2+ blood, 3+ white blood cells. She is 2+ l eukocyte esterase positive. CBC is normal other than a borderline elevated MCV at 98. Urine culture from 07/25/19 revealed no growth of clinically significant organisms. IMPRESSION AND PLAN: Impression is that of mild cognitive impairment, possibly early dementia. She does have vitamin B12 deficiency which is a potential etiology, but it sounds like this has been comi ng on for over a year. She may have early Alzheimer disease. Her MRI scan does not show any lobar a trophy or significant vascular disease. Recommend checking a syphilis test and also a methylmalonic acid level. She has been getting appropr iate vitamin B12 supplementation with the recent injection. She will need longer term followup to see if her cognition is stable or worsens over time. Currently, her disposition is also uncertain given her lack of capacity. [id number]/[facility] #: [id number]
[2019-07-27] MEDS: Acetaminophen TAB* 325 MG PO PRN (21:43)
[2019-07-28] MEDS: Levothyroxine TAB* 88 MCG TAB PO SCH (05:27)
[2019-07-28] MEDS: Lisinopril TAB* 10 MG PO SCH (08:40)
[2019-07-28] MEDS: Cyanocobalamin TAB* 500 MCG PO SCH (08:40)
[2019-07-28] MEDS: FLUoxetine CAP* 10 MG PO SCH (08:40)
--- NOTE | 2019-07-28 15:39 | PN ---
Subjective Date of Service: 07/28/19 Interval History: Noticed that patient had suicidal ideation last night, thus was put on 1:1 monitor. She is not active suicidal this morning when I saw her. She was laughing and talking with nurses. She still felt anxious but much better. Spoke to pt's daughter who just returned [place] a trip [place] this afternoon at length, answered all her questions, mainly about her concern about the rapid progressive nature of this dementia. Also talked to pt's son and daughter in law who is a physician,they would like pt to be referred to a catheter builder or geriatric psychiatrist who could better take care of her in a termination clerk. Discharge plan explained to them. Talked to publications editor pillowcase sewer Caitlyn today, she verbalized placement could only be available until Monday as those places are not working in weekend. Objective Active Medications: Acetaminophen (Tylenol Tab*) 650 mg PO Q4H PRN PRN Reason: PAIN - MILD Last Admin: 07/27/19 21:43 Dose: 650 mg Clonazepam (Klonopin Tab(*)) 1 mg PO Q8H PRN PRN Reason: Panic attack Last Admin: 07/28/19 10:13 Dose: 1 mg Cyanocobalamin (Vitamin B12 Tab*) 1,000 mcg PO DAILY [facility] Last Admin: 07/28/19 08:40 Dose: 1,000 mcg Cyanocobalamin (Vitamin B12 Inj *) 1,000 mcg IM Q7D [facility] Last Admin: 07/27/19 08:58 Dose: 1,000 mcg Fluoxetine HCl (Prozac Cap*) 50 mg PO DAILY [facility] Last Admin: 07/28/19 08:40 Dose: 50 mg Levothyroxine Sodium (Synthroid Tab*) 88 mcg PO DAILY@0600 [facility] Last Admin: 07/28/19 05:27 Dose: 88 mcg Lisinopril (Prinivil Tab*) 20 mg PO DAILY [facility] Last Admin: 07/28/19 08:40 Dose: 20 mg Vital Signs - 8 hr 07/28/19 07/28/19 08:00 10:13 Respiratory 20 19 Rate Oxygen Devices in Use Now: None Exam: General - NAD, sitting up in bed, well groomed and in nightgown Eyes - PERRLA, EOM intact HEENT- no abnormality Cardiovascular - RRR no m/r/g, no JVD, no carotid bruits Lungs - Clear to auscltation, no use of acessory muscles, no crackles or wheezes. Skin - No rashes, skin warm and dry, no erythematous areas Abdomen - Normal bowel sounds, abdomen soft and nontender Extremeties - No edema, cyanosis or clubbing Musculo Skeletal - 5/5 strength, normal range of motion, no swollen or erythematous joints. Neurological Alert and oriented x 3, CN 2-12 grossly intact. Psychiatry- anxious, no suicidal ideation. Result Diagrams: 07/26/19 05:34 07/26/19 05:34 Additional Lab and Data: Laboratory Tests 07/26/19 05:34 Vitamin B12 141 L Folate 5.25 Cortisol 17.33 Microbiology and Other Data: Microbiology 07/25/19 14:23 Urine Culture - Final Urine Diagnostic Imaging: MRI brain; normal for age Assess/Plan/Problems-Billing Assessment: 73 y/o female with history of hypertension , presented with near-syncope and orthostasis after a recent history of progressive memory loss. Workup for organic causes of near-syncope and orthostasis is unremarkable so far, but patient had this recurrent episode which was clearly panic attack. - Patient Problems (1) Panic attack Current Visit: Yes Status: Acute Code(s): F41.0 - PANIC DISORDER [EPISODIC PAROXYSMAL ANXIETY] SNOMED Code(s): 009945095 Comment: Psychiatry consult done, fluoxetine uptitrated and Lorazepam prn (2) Orthostasis Current Visit: Yes Status: Acute Code(s): I95.1 - ORTHOSTATIC HYPOTENSION SNOMED Code(s): 08820594 Comment: Orthostatic changes noted in ED likely hypovolemic in nature IV NS given with good effect. (3) Hypertension Current Visit: Yes Status: Acute Priority: Medium Code(s): I10 - ESSENTIAL (PRIMARY) HYPERTENSION SNOMED Code(s): 11841188 Comment: - tolerating lisinopril - BP not at goal, lisinopril increased to 20mg daily (4) Anxiety Current Visit: No Status: Acute Priority: High Onset Date: 09/20/15 Code (s): F41.9 - ANXIETY DISORDER, UNSPECIFIED SNOMED Code(s): 72244745 Comment: increased fluoxetine as mentioned above (5) Major depression Current Visit: Yes Status: Suspected Priority: High Onset Date: 09/20/15 Code(s): F32.9 - MAJOR DEPRESSIVE DISORDER, SINGLE EPISODE, UNSPECIFIED SNOMED Code(s): 884798495 Comment: -Psychiatry consult appreciated, increased SSRI dose -Contacted Dr. Loomis to see patient again re suicidality -1:1 ordered Status and Disposition: Inpatient medicine, patient is unsafe to go home due to psychiatric issues, placement after discharge with family planned Attestation Documenting Resident: Janine Callahan Supervising Physician: Arian Dave Attestation: This service has been performed in part by a resident under the direction of a teaching physician.I, Arian Dave, performed the service, or was physically present during the critical, or gordon portions of the service, furnished by the resident. I participated in the management of the patient.
--- NOTE | 2019-07-28 18:40 | PN ---
Progress Note - Progress Note Date of Service: 08/26/19 Note: Saw Ms. Lawson yesterday and today to do a consult to determine her mental capacity to decide her own discharge. It was evident from the assessment and collaterals that she has mild to moderate cognitive impairment. She didn't remember any recent events including conversations about her discharge plans or news about her daughter's visit despite the fact that her vocabulary is very good. There was no change of mental status today. Denies problems with her mood, thoughts or perceptions. Also denies SI or HI. Assessment : At this time Ms. Lawson lacks mental capacity to decide about a safe discharge for herself as she doesn't appreciate risks involved with her living alone the community without constant supervision in the context of her cognitive impairment.
[2019-07-29] MEDS: Levothyroxine TAB* 88 MCG TAB PO SCH (05:23)
[2019-07-29] MEDS: Lisinopril TAB* 10 MG PO SCH (07:35)
[2019-07-29] MEDS: FLUoxetine CAP* 10 MG PO SCH (07:35)
--- NOTE | 2019-07-29 13:44 | PN ---
Subjective Date of Service: 07/29/19 Interval History: Patient was unable to remember my conversation with her yesterday regarding her admission. She still asked what was going on with her. Mood is stable, no suicidal ideation. Objective Active Medications: Acetaminophen (Tylenol Tab*) 650 mg PO Q4H PRN PRN Reason: PAIN - MILD Last Admin: 07/27/19 21:43 Dose: 650 mg Clonazepam (Klonopin Tab(*)) 1 mg PO Q8H PRN PRN Reason: Panic attack Last Admin: 07/28/19 10:13 Dose: 1 mg Cyanocobalamin (Vitamin B12 Inj *) 1,000 mcg IM Q7D [facility] Last Admin: 07/27/19 08:58 Dose: 1,000 mcg Fluoxetine HCl (Prozac Cap*) 50 mg PO DAILY [facility] Last Admin: 07/29/19 07:35 Dose: 50 mg Levothyroxine Sodium (Synthroid Tab*) 88 mcg PO DAILY@0600 [facility] Last Admin: 07/29/19 05:23 Dose: 88 mcg Lisinopril (Prinivil Tab*) 20 mg PO DAILY [facility] Last Admin: 07/29/19 07:35 Dose: 20 mg Vital Signs - 8 hr 07/29/19 07/29/19 07/29/19 07:28 07:37 11:31 Temperature 98.8 F 101.1 F Pulse Rate 72 93 Respiratory 16 20 18 Rate Blood Pressure 109/73 125/70 (mmHg) O2 Sat by Pulse 95 97 Oximetry Oxygen Devices in Use Now: None Exam: General - NAD, sitting up in bed reading newspaper Eyes - PERRLA, EOM intact HEENT- no abnormality Cardiovascular - RRR no m/r/g, no JVD, no carotid bruits Lungs - Clear to auscltation, no use of acessory muscles, no crackles or wheezes. Skin - No rashes, skin warm and dry, no erythematous areas Abdomen - Normal bowel sounds, abdomen soft and nontender Extremeties - No edema, cyanosis or clubbing Musculo Skeletal - 5/5 strength, normal range of motion, no swollen or erythematous joints. Neurological Alert and oriented x 3, CN 2-12 grossly intact. Psychiatry- anxious, no suicidal ideation. Result Diagrams: 07/26/19 05:34 07/26/19 05:34 Additional Lab and Data: Laboratory Tests 07/26/19 05:34 Vitamin B12 141 L Folate 5.25 Cortisol 17.33 Assess/Plan/Problems-Billing Assessment: 73 y/o female with history of hypertension , presented with near-syncope and orthostasis after a recent history of progressive memory loss. Workup for organic causes of near-syncope and orthostasis is unremarkable so far, but patient had this recurrent episode which was clearly panic attack. Workup for cognitive impairment was also done which revealed vitb12 def and depression. - Patient Problems (1) Panic attack Current Visit: Yes Status: Acute Code(s): F41.0 - PANIC DISORDER [EPISODIC PAROXYSMAL ANXIETY] SNOMED Code(s): 077328609 Comment: Psychiatry consult done, fluoxetine uptitrated and Lorazepam prn (2) Orthostasis Current Visit: Yes Status: Acute Code(s): I95.1 - ORTHOSTATIC HYPOTENSION SNOMED Code(s): 80684621 Comment: Orthostatic changes noted in ED likely hypovolemic in nature IV NS given with good effect. (3) Hypertension Current Visit: Yes Status: Acute Priority: Medium Code(s): I10 - ESSENTIAL (PRIMARY) HYPERTENSION SNOMED Code(s): 12043382 Comment: - tolerating lisinopril - BP not at goal, lisinopril increased to 20mg daily (4) Anxiety Current Visit: No Status: Acute Priority: High Onset Date: 09/20/15 Code (s): F41.9 - ANXIETY DISORDER, UNSPECIFIED SNOMED Code(s): 18055570 Comment: increased fluoxetine as mentioned above (5) Major depression Current Visit: Yes Status: Suspected Priority: High Onset Date: 09/20/15 Code(s): F32.9 - MAJOR DEPRESSIVE DISORDER, SINGLE EPISODE, UNSPECIFIED SNOMED Code(s): 793722033 Comment: -Psychiatry consult appreciated, increased SSRI dose - was on 1:1 due to suicidal ideation. (6) Dementia Current Visit: Yes Status: Acute Code(s): F03.90 - UNSPECIFIED DEMENTIA WITHOUT BEHAVIORAL DISTURBANCE SNOMED Code(s): 54277209 Comment: Vitb12 def, depression was found during workup iv cyclobalamin was started, workup for pernicious anemia was also started Plan for independent living place as a interim before moving to her son's place Status and Disposition: custodian manager stay currently, patient is unsafe to go home due to psychiatric issues , placement after discharge with family planned Attestation Documenting Resident: Janine Callahan Supervising Physician: Yony Mccauley Attending/Supervising Physician Comment: Agree with plan as outlined in Dr. Callahan's note from today unless indicated. Near syncope, was orthostatic on presentation but also concern for panic attack with stay notable for depression/suicidal ideation now resolved. One time fever today resolved without intervention. If recurs will need urine, blood cultures and CXR Attestation: This service has been performed in part by a resident under the direction of a teaching physician.I, Yony Mccauley, performed the service, or was physically present during the critical, or gordon portions of the service, furnished by the resident. I participated in the management of the patient.
[2019-07-30] MEDS: Levothyroxine TAB* 88 MCG TAB PO SCH (05:12)
[2019-07-30] MEDS: Lisinopril TAB* 10 MG PO SCH (08:40)
[2019-07-30] MEDS: FLUoxetine CAP* 10 MG PO SCH (08:40)
--- NOTE | 2019-07-30 08:44 | CONSULT ---
Consult Consult: Reason for consult depression and memory issues. CC "Fine " The patient was seen for a follow up in regards to a consult. Her daughter and friend were visiting. Her daughter plans to make arrangements for her to live with her until upon discharge and when other arrangement can be made. The patient expressed frustration about not being able to drive. She reported no changes in sleep or appetite. The patient wants to live for her children. The patient denied suicidal and or homicidal ideation intent or plan. The patient denied auditory and/ or visual hallucinations. Mental Status Exam on Admission APPEARANCE : 73 year old who appears stated age. Patient is not malodourous, and appears to have fair hygiene and grooming. BEHAVIOR: Cooperative , calm EYE CONTACT: Fair PSYCHOMOTOR ACTIVITY: No psychomotor agitation or retardation. MOVEMENTS: No abnormal movements observed. SPEECH : Normal rate, rhythm, volume and tone. MOOD : "okay " AFFECT : Type is anxious THOUGHT PROCESS: Formulated and organized in a logical, linear goal directed manner. No flight of ideas, neologism (made up words) , perseveration , tangential , loose associations , or circumstantiality. THOUGHT CONTENT: no delusions, obsessions, phobias or preoccupations. PERCEPTION: No current auditory or visual hallucinations. Doesnt appear to be responding to internal cues. No evidence of depersonalization , de-realization, or illusions SUICIDALITY Denied suicidal ideation, intent or plan. HOMICIDALITY Denied homicidal ideation, intent or plan. Insight/judgment: Poor insight and judgment ORIENTATION: Oriented to self, location, and not year. Diagnosis: Unspecified neuro-cognitive disorder, panic disorder, history of major depressive disorder. Assessment: 73 year old with history of depression and anxiety came to the hospital after having a panic attack and showing signs of cognitive decline. Plan # Patient doesnt require psychiatric inpatient admission at this time. # Medical team to address medical issues. # Continue prozac 50mg daily for panic disorder # Continue Klonopin 1mg PRN in the event of having a panic attack. Use sparingly only in the event of a panic attack, given cognitive disorder and risk of falls and delirium. # She plans to live with her daughter upon discharge # MOCA 23 indicating mild neuro-cognitive disorder Patient informed of 19/06 availability of the ER in the event of a emergency. #Psychiatry will sign off, please consult again if you have any questions. Sodium 137 mmol/L (135-145) 07/26/19 05:34 Potassium 3.9 mmol/L (3.5-5.0) 07/26/19 05:34 BUN 10 mg/dL (6-24) 07/26/19 05:34 Creatinine 0.68 mg/dL (0.51-0.95) 07/26/19 05:34 Calcium 9.3 mg/dL (8.6-10.3) 07/26/19 05:34 Magnesium 1.9 mg/dL (1.9-2.7) 07/25/19 13:28 AST 16 U/L (13-39) 07/25/19 13:28 ALT 18 U/L (7-52) 07/25/19 13:28
[2019-07-30 15:29] VITALS: BP 125/76
--- NOTE | 2019-07-30 22:16 | DS ---
CC: Dr. Wesley Llanos* DISCHARGE SUMMARY: DATE OF ADMISSION: 07/25/19 DATE OF DISCHARGE: 07/30/19 PRIMARY CARE PROVIDER: Dr. Wesley Llanos. DISPOSITION ON DISCHARGE: To home with family. CONDITION ON DISCHARGE: Stable. PRIMARY DIAGNOSES: Include: 1. Near syncope. 2. Progressive dementia. 3. Vitamin B12 deficiency. SECONDARY DIAGNOSES: Include: 1. Hypothyroidism. 2. Hypertension. 3. Depression. 4. Panic attacks. MEDICATIONS ON DISCHARGE: Include: 1. Levothyroxine 88 mcg daily. 2. Fluoxetine 40 mg daily. 3. Clonazepam 1 mg every 8 hours as needed for anxiety, dispensed 5 tabs. 4. Lisinopril 20 mg daily. 5. Vitamin B12 1000 mcg daily. 6. Acetaminophen 650 mg every 4 hours as needed for pain or fever. PERTINENT LABORATORY DATA: TSH 2.49. Cortisol 17.3, drawn at 5:30 in the morning. Vitamin B12 of 141. Methylmalonic acid remains pending at the time of this discharge. Syphilis IgG is negative. IMAGING PERFORMED DURING HOSPITAL STAY: Brain MRI, impression: No acute intracranial abnormalities, mild chronic small vessel ischemic disease is likely. CONSULTATIONS DURING THE HOSPITAL STAY: Neurology as well as Psychiatry. Please note the patient's MoCA is 23, indicating mild neurocognitive disorder. HISTORY OF PRESENT ILLNESS AND HOSPITAL COURSE: This is a 73-year-old female with past medical history as outlined in the history of present illness on the date of admission, presented to the hospital after an episode of near syncope. She was orthostatic in the emergency room with concern for either dehydration and/or medications including her metoprolol contributing to her near syncopal episode. It was thought this patient had a panic attack in the setting of a near syncopal episode at home, precipitating some of the symptoms and an emergency room stay. During the hospital stay, there was workup for, her dementia was thought to be more rapidly progressive as of recently. She was seen in consultation with Neurology. A B12 deficiency was noted and methylmalonic acid was pending at the time of discharge. A placement with IV B12 was initiated at the time of her hospital stay and her p.o. B12 to be continued at the time of discharge. Differential did include possible early dementia as well as Alzheimer's disease. She now lacked the capacity to make decision regarding her disposition. Her daughter elected to take her home and care for her while she attempted to enroll her in a local assisted care facility in [place]. We discussed at length safety measures taken at home to ensure her mother's safety in the setting of her cognitive impairment. Clonazepam was continued p.r.n. with only 5 tabs dispensed for panic disorder with indication that should she need all 5 or more frequently. Attempts should be made to medication changes to decrease their frequency rather than increasing , benzodiazepine used first, as it may contribute to fall, such as the near syncopal episode leading to a hospital stay for this admission. During the hospital stay, she did have 1 episode of suicidal ideation, was shortly placed on one-to-one which abated, remained pleasant without any evidence of ongoing depression during the course of her hospital stay. There were no other complications during the course of her hospital stay. At follow-up, please: 1. Ensure blood pressure control by current regimen of lisinopril. 2. Ensure panic and depression are well controlled by current regimen. 3. Assist with enrollment in assisted living facility with dementia care should it still be needed. 4. Please follow up on methylmalonic acid which is pending at the time of this discharge. Reasons to return to the hospital including, but not limited to, recurrent or worsening symptoms including rapidly worsening mental status, memory or cognitive impairment, chest pain, shortness of breath, nausea, vomiting, lightheadedness, loss of consciousness, near loss of consciousness, inability to obtain or tolerate medications were discussed with the patient's daughter, and they acknowledged understanding. TIME SPENT: Greater than 60 minutes was spent on the discharge of this patient , greater than half was spent [id number] with the patient. [id number]/[facility] #: [id number] [facility] HOSPITALMichelle
[2019-07-31 16:32] LABS: Intrinsic Factor Blocking AB Negative (Negative)
[2019-08-05 15:03] LABS: Parietal Cell Ab IgG <10.0 U
== END 2019-07-30 15:42 | disposition home or self-care (01) | DRG 880 ==
LOC: ED 12:48 → MEDTELE 16:51 → OBSVTOIN 07-27 12:00
PROVIDERS: ADMIT Internal Medicine; ATTEND Internal Medicine
DX: F41.0 Panic disorder [episodic paroxysmal anxiety] (principal); R45.851 Suicidal ideations; F03.90 Unspecified dementia, unspecified severity, without behavioral disturbance, psychotic disturbance, mood disturbance, and anxiety; E53.8 Deficiency of other specified B group vitamins; I95.1 Orthostatic hypotension; E03.9 Hypothyroidism, unspecified; F32.9 Major depressive disorder, single episode, unspecified; Z96.653 Presence of artificial knee joint, bilateral; Z79.899 Other long term (current) drug therapy; Z88.0 Allergy status to penicillin; Z81.8 Family history of other mental and behavioral disorders
CPT/HCPCS: 36415; 70450; 70553; 71046; 80048; 80053; 81003; 81015; 82533; 82607; 82746; 83516; 83605; 83735; 83921; 84443; 84484; 85025; 86340; 86780; 87086; 93005; 93306; 99285; A9270-GY; A9579; G0378; J0696; J3420; J3490